=== PATIENT | female | born 1990 | race Caucasian/White ===

== ENCOUNTER 2018-11-03 12:24 | Inpatient (IN) | payer OTHER ==
[2018-11-03] MEDS ORDERED: TERBUTALINE 1 ML (13:14)
[2018-11-03] MEDS: LACTATED RINGER'S 1,000 ML IV ×4 (13:27→21:10)
[2018-11-03] MEDS: TERBUTALINE 1 MG/ML INJ SC ×2 (13:52→15:16)
[2018-11-03 17:00] LABS: ADD MAN DIFF? NO
[2018-11-03] MEDS ORDERED: MISOPROSTOL 200 MCG TAB PR ×3 (17:00→21:30)
[2018-11-03] MEDS ORDERED: METHYLERGONOVINE 0.2 MG INJ IM ×3 (17:00→21:30)
[2018-11-03] MEDS ORDERED: CARBOPROST 250 MCG INJ IM ×3 (17:00→21:30)
[2018-11-03] MEDS ORDERED: OXYTOCIN 30 UNITS/LR 500 ML IV ×5 (17:00→21:30)
[2018-11-03 17:04] LABS: BASOPHILS % 0.2 % (0.0-2.0); EOSINOPHILS % 0.3 % (0.0-7.0); HEMATOCRIT 34.7 % (37.0-47.0); HEMOGLOBIN 11.6 g/dl (12.0-16.0); LYMPHOCYTES # 2.1 10^3/ul (0.8-2.9); LYMPHOCYTES % 19.7 % (15.0-51.0); MEAN CORPUSCULAR HGB CONC 33.4 g/dl (32.0-37.0); MEAN CORPUSCULAR VOLUME 92.8 fl (82.0-101.0); MEAN PLATELET VOLUME 10.8 fl (7.4-10.4); MONOCYTE # 0.7 10^3/ul (0.3-0.9); MONOCYTES % 6.1 % (0.0-11.0); NEUTROPHIL # 7.9 10^3/ul (1.6-7.5); PLATELET COUNT 189 10^3/UL (140-415); RED BLOOD COUNT 3.74 10^6/ul (4.20-5.40)
[2018-11-03 17:04] LABS: WHITE BLOOD COUNT 10.8 10^3/ul (4.8-10.8)
[2018-11-03 17:11] LABS: INR 1.03; PROTIME 13.6 Sec (11.9-14.9); PT RATIO 1.1
[2018-11-03 17:12] LABS: PARTIAL THROMBOPLASTIN TIME 27.4 Sec (23.0-35.0)
[2018-11-03 17:14] LABS: URIC ACID 2.3 mg/dl (3.1-7.9)
[2018-11-03 17:17] LABS: ALANINE AMINOTRANSFERASE 13 IU/L (13-69); ALBUMIN 3.1 g/dl (3.3-4.9); ALBUMIN/GLOBULIN RATIO 1.14; ALKALINE PHOSPHATASE 111 IU/L (42-121); ANION GAP 12 (5-13); ASPARTATE AMINO TRANSFERASE 16 IU/L (15-46); BILIRUBIN,INDIRECT 0.4 mg/dl (0-1.1); BILIRUBIN,TOTAL 0.4 mg/dl (0.2-1.3); BLOOD UREA NITROGEN 5 mg/dl (7-20); CALCIUM 9.2 mg/dl (8.4-10.2); CARBON DIOXIDE 20 mmol/L (21-31); CHLORIDE 107 mmol/L (97-110); CREATININE 0.44 mg/dl (0.44-1.00); Estimated GFR > 60 mL/min (>60); GLUCOSE 92 mg/dl (70-220); POTASSIUM 3.2 mmol/L (3.5-5.1); SODIUM 139 mmol/L (135-144); TOTAL PROTEIN 5.8 g/dl (6.1-8.1)
[2018-11-03 17:21] LABS: ADD UMIC YES; UR AMORPHOUS CRYSTAL FEW /HPF (NONE SEEN); UR ASCORBIC ACID NEGATIVE (NEGATIVE); UR BACTERIA FEW /HPF (NONE SEEN); UR BILIRUBIN (Dip) NEGATIVE (NEGATIVE); UR BLOOD (Dip) NEGATIVE (NEGATIVE); UR CLARITY TURBID (CLEAR); UR COLOR YELLOW (YELLOW); UR GLUCOSE (Dip) NEGATIVE (NEGATIVE); UR KETONES (Dip) NEGATIVE (NEGATIVE); UR LEUKOCYTE ESTERASE (Dip) TRACE Leu/ul (NEGATIVE); UR NITRITE (Dip) NEGATIVE (NEGATIVE); UR RBC 2 /HPF (0-5); UR SPECIFIC GRAVITY (Dip) 1.012 (1.003-1.030); UR SQUAMOUS EPITHELIAL CELL MODERATE /HPF (FEW); UR TOTAL PROTEIN (Dip) NEGATIVE (NEGATIVE); UR UROBILINOGEN (Dip) NEGATIVE (NEGATIVE); UR WBC 7 /HPF (0-5)
[2018-11-03 17:42] LABS: ALANINE AMINOTRANSFERASE 15 IU/L (13-69); ALBUMIN 2.9 g/dl (3.3-4.9); ALKALINE PHOSPHATASE 114 IU/L (42-121); ASPARTATE AMINO TRANSFERASE 13 IU/L (15-46); BILIRUBIN,INDIRECT 0.3 mg/dl (0-1.1); BILIRUBIN,TOTAL 0.3 mg/dl (0.2-1.3); TOTAL PROTEIN 5.5 g/dl (6.1-8.1)
[2018-11-03 17:47] LABS: HEPATITIS B SURFACE ANTIGEN NEGATIVE (NEGATIVE)
[2018-11-03] MEDS ORDERED: OXYTOCIN 30 UNITS/LR 500 ML BAG IV (20:00)
[2018-11-03] MEDS: DEXTROSE 5%-LR 1,000 ML IV (20:11)
[2018-11-03] MEDS: CITRIC ACID/NA CITRATE 30 ML CUP PO (20:12)
[2018-11-03] MEDS: ONDANSETRON 4 MG INJ IV (20:12)
[2018-11-03] MEDS: CEFAZOLIN 2 GM/50 ML (PMX) 50 ML IVPB ×2 (20:23→21:30)
[2018-11-03] MEDS ORDERED: OXYTOCIN 10 UNIT INJ (20:46)
[2018-11-03] MEDS ORDERED: morphine SULFATE/PF (10 MG/10 ML) INJ (20:46)
[2018-11-03] MEDS ORDERED: PHENYLephrine (100 MCG/ML) 10ML SYG ×2 (20:46→21:45)
[2018-11-03] MEDS ORDERED: NA PHOSPHATE/BIPHOS 133 ML ENEMA PR (21:30)
[2018-11-03] MEDS ORDERED: METHYLERGONOVINE 0.2 MG TAB PO (21:30)
[2018-11-03] MEDS ORDERED: ONDANSETRON 4 MG INJ (21:38)
[2018-11-03] MEDS ORDERED: KETOROLAC 30 MG INJ (21:38)
[2018-11-03] MEDS ORDERED: DEXAMETHASONE 4 MG/ML 1 ML INJ (21:38)
[2018-11-03] MEDS ORDERED: METOCLOPRAMIDE 10 MG INJ (21:38)
[2018-11-03] MEDS ORDERED: MEPERIDINE 100 MG INJ (21:44)
[2018-11-03] MEDS ORDERED: KETOROLAC 30 MG INJ IV (22:00)
[2018-11-03] MEDS ORDERED: METOCLOPRAMIDE 10 MG INJ IV (22:00)
[2018-11-03] MEDS ORDERED: EPHEDrine 25 MG/5 ML SYG IV (22:00)
[2018-11-03] MEDS ORDERED: HYDROmorphONE 1 MG/5 ML IV SYRINGE IV ×2 (22:00)
[2018-11-03] MEDS ORDERED: HYDROCODONE/APAP (5/325) TAB PO (22:00)
[2018-11-03] MEDS ORDERED: NALBUPHINE HCL (10 MG/1 ML) INJ IV (22:00)
[2018-11-03] MEDS ORDERED: DIPHENHYDRAMINE 50 MG INJ IV ×2 (22:00)
[2018-11-03] MEDS ORDERED: MEPERIDINE 25 MG INJ IV (22:00)
[2018-11-03] MEDS ORDERED: ACETAMINOPHEN 500 MG TAB PO (22:00)
[2018-11-03] MEDS ORDERED: NALOXONE (0.4 MG/ML) INJ IV (22:00)
[2018-11-03] MEDS ORDERED: OXYCODONE/ACETAMINOPHEN (5/325) TAB PO (22:00)
[2018-11-03] MEDS ORDERED: ONDANSETRON 4 MG INJ IV (22:00)
[2018-11-03] MEDS ORDERED: FENTAnyl 50 MCG/ML VIAL IV ×2 (22:00)
[2018-11-03] MEDS ORDERED: LABETALOL HCL 20MG INJ IV (22:00)
[2018-11-03] MEDS ORDERED: morphine 2 MG INJ IV ×2 (22:00)
[2018-11-03] MEDS ORDERED: HYDROmorphONE 0.5 MG/0.5 ML SYG IV ×2 (22:00)
[2018-11-04] MEDS: LACTATED RINGER'S 1,000 ML IV ×5 (00:44→21:00)
[2018-11-04] MEDS: DEXTROSE 5%-LR 1,000 ML IV (00:44)
[2018-11-04] MEDS: KETOROLAC 30 MG INJ IV ×5 (00:52→21:50)
[2018-11-04] MEDS: OXYTOCIN 30 UNITS/LR 500 ML IV ×3 (00:53→02:43)
[2018-11-04] MEDS: ONDANSETRON 4 MG INJ IV (03:39)
[2018-11-04] MEDS: CEFAZOLIN 2 GM/50 ML (PMX) 50 ML IVPB ×3 (06:08→20:59)
[2018-11-04 06:19] LABS: ADD MAN DIFF? NO
[2018-11-04 06:22] LABS: WHITE BLOOD COUNT 14.1 10^3/ul (4.8-10.8)
[2018-11-04 06:22] LABS: BASOPHILS % 0.1 % (0.0-2.0); HEMATOCRIT 36.2 % (37.0-47.0); HEMOGLOBIN 12.5 g/dl (12.0-16.0); LYMPHOCYTES # 1.2 10^3/ul (0.8-2.9); LYMPHOCYTES % 8.6 % (15.0-51.0); MEAN CORPUSCULAR HEMOGLOBIN 31.1 pg (29.0-33.0); MEAN CORPUSCULAR HGB CONC 34.5 g/dl (32.0-37.0); MONOCYTE # 0.6 10^3/ul (0.3-0.9); MONOCYTES % 4.2 % (0.0-11.0); NEUTROPHIL # 12.2 10^3/ul (1.6-7.5); NEUTROPHILS % 86.5 % (39.0-77.0); PLATELET COUNT 202 10^3/UL (140-415); RED BLOOD COUNT 4.02 10^6/ul (4.20-5.40); RED CELL DISTRIBUTION WIDTH 12.7 % (11.5-14.5)
[2018-11-04] MEDS: SENNA/DOCUSATE NA (8.6MG/50MG) TAB PO ×2 (09:25→21:02)
[2018-11-04] MEDS: LANOLIN HPA 1 PKT TOP ×2 (09:26→19:12)
[2018-11-04 15:56] LABS: RAPID PLASMA REAGIN NONREACTIVE (NR)
[2018-11-05] MEDS: KETOROLAC 30 MG INJ IV ×2 (04:00→10:00)
[2018-11-05] MEDS: LACTATED RINGER'S 1,000 ML IV (04:28)
[2018-11-05] MEDS: HYDROCODONE/APAP (5/325) TAB PO ×2 (05:45→22:53)
[2018-11-05] MEDS: SENNA/DOCUSATE NA (8.6MG/50MG) TAB PO ×2 (08:05→22:48)
[2018-11-05] MEDS: IBUPROFEN 800 MG TAB PO ×2 (11:04→17:54)
[2018-11-05] MEDS: BISACODYL (EC) 5 MG TAB PO (17:00)
[2018-11-06] MEDS: IBUPROFEN 800 MG TAB PO ×2 (07:26→12:24)
[2018-11-06] MEDS: HYDROCODONE/APAP (5/325) TAB PO (07:27)
[2018-11-06 08:24] LABS: ADD MAN DIFF? NO
[2018-11-06 08:43] LABS: WHITE BLOOD COUNT 8.5 10^3/ul (4.8-10.8)
[2018-11-06 08:43] LABS: BASOPHILS % 0.2 % (0.0-2.0); EOSINOPHILS # 0.1 10^3/ul (0.0-0.5); EOSINOPHILS % 1.3 % (0.0-7.0); HEMATOCRIT 32.9 % (37.0-47.0); LYMPHOCYTES # 2.5 10^3/ul (0.8-2.9); LYMPHOCYTES % 29.3 % (15.0-51.0); MEAN CORPUSCULAR HEMOGLOBIN 30.8 pg (29.0-33.0); MEAN CORPUSCULAR HGB CONC 33.4 g/dl (32.0-37.0); MEAN CORPUSCULAR VOLUME 92.2 fl (82.0-101.0); MONOCYTE # 0.6 10^3/ul (0.3-0.9); MONOCYTES % 6.9 % (0.0-11.0); NEUTROPHIL # 5.2 10^3/ul (1.6-7.5); NEUTROPHILS % 61.7 % (39.0-77.0); PLATELET COUNT 196 10^3/UL (140-415); RED BLOOD COUNT 3.57 10^6/ul (4.20-5.40); RED CELL DISTRIBUTION WIDTH 13.2 % (11.5-14.5)
[2018-11-06] MEDS: MEASLES,MUMPS,RUBELLA VACCINE INJ SC* (09:00)
[2018-11-06] MEDS: SENNA/DOCUSATE NA (8.6MG/50MG) TAB PO (10:24)
[2018-11-06] MEDS: DIPHTH/TET/ACEL PERTUSS (ADULT) 0.5 ML VIAL IM* (12:26)
== END 2018-11-06 15:38 | disposition home or self-care (01) | DRG 788 ==
LOC: OBT 12:24 → L-D 12:24 → PP1 11-04 01:21 → OBT 16:00 → L-D 16:00
PROC: 10D00Z1 Extraction of Products of Conception, Low, Open Approach (ICD-10-PCS; principal; 2018-11-03 21:30)
DX: O34.211 Maternal care for low transverse scar from previous cesarean delivery (principal); O24.420 Gestational diabetes mellitus in childbirth, diet controlled; Z3A.36 36 weeks gestation of pregnancy; Z37.0 Single live birth
CPT/HCPCS: 80053; 80076; 81001; 82962; 84560; 85025; 85384; 85610; 85730; 86592; 86850; 86900; 86901; 87340; 90715; 96360; 96361; 96372; 99464